=== PATIENT | male | born 1960 | race Hispanic/Latino ===

== ENCOUNTER → 2017-10-30 | Outpatient (CLI) | payer BC ==
[~2017-10-30] MED LIST: LISINOPRIL10 MG PO
--- NOTE | 2017-10-30 17:15 | Diagnostic Imaging Report ---
Left knee MRI without contrast. History: Knee pain. Lateral meniscus tear. Decreased range of motion. Comparison: None. Technique: Multiplanar multi-sequence MRI of the knee without contrast. Findings: Medial compartment: There is a complex medial meniscus tear involving the posterior horn and body segments best seen on sagittal series 3 image 31. The medial compartmental articular cartilage surfaces are thinned with regions of fraying and fissuring. There are peripheral marginal osteophytes. There is mild bone marrow edema. The medial collateral ligament complex is intact. Lateral compartment: There is a complex lateral meniscus tear involving the posterior horn and body segments. This is best seen on sagittal series 3 image 14. Lateral compartmental articular cartilage surfaces are within with regions of fraying and fissuring. There are peripheral marginal osteophytes. The lateral collateral ligament complex is intact. Intercondylar notch: The ACL and PCL are intact. Patellofemoral compartment: There is mild articular cartilage fraying and fissuring in the patellofemoral compartment. Extensor mechanism: The quadriceps and patellar tendons are normal. Other findings: There is a joint effusion and synovitis. There is no acute fracture, subluxation or avascular necrosis. IMPRESSION: Complex medial meniscus tear with associated degenerative arthrosis in the medial compartment of the knee. Complex lateral meniscus tear with associated degenerative arthrosis in the lateral compartment of the knee. Mild articular cartilage fraying and fissuring in the patellofemoral compartment. Joint effusion and synovitis. Signed by: Dr. Stalin Eden M.D. on 10/30/2017 5:11 PM
== END ==
LOC: MRI 15:48
PROVIDERS: ATTEND Specialist
DX: S83.282A Other tear of lateral meniscus, current injury, left knee, initial encounter (principal)

== ENCOUNTER → 2017-11-18 | Day surgery (SDC) | payer BC ==
[~2017-11-18] MED LIST changes: +ACETAMINOPHEN 1000 MG/100 ML IV ONE; +BUPIVACAINE HCL 0.5% INJ 30 ML VIAL INJ ONE; +CEFAZOLIN SOD 2 GM/D5W 50ML 50 ML IV ONE; +DEXAMETHASONE SOD PHOS INJ 4 MG/ML VIAL ONE; +FENTANYL CITRATE/PF 100MCG/2 ML INJ ONE; +KETOROLAC TROMETHAMINE 30 MG/ML VIAL ONE; +LIDOCAINE HCL 2% LOCAL INJ 5 ML SDV VIAL INJ ONE; +MIDAZOLAM HCL 2 MG/2 ML VIAL ONE; +ONDANSETRON HCL INJ 2 MG/ML VIAL ONE; +PROPOFOL IV EMULSION 10 MG/ML 20 ML VIAL ONE; +SEVOFLURANE INHAL SOLN 250 ML PEN BTL ONE
--- OUTSIDE RECORDS SUMMARY | 2017-11-18 06:11 | XMS REPORT ---
Author [facility] Address Unknown Phone Unavailable Care Team Providers Care Risk Analyst Name Role Phone LIZZ OCHOA Unavailable Unavailable Problems This patient has no known problems. Allergies, Adverse Reactions, Alerts This patient has no known allergies or adverse reactions. Medications This patient has no known medications. Results Test Description Test Time Test Comments Text Results Atomic Results Result Comments MRI KNEE LEFT WO [place] [address] Patient Name: JEROME HESTER MR #: [id number] : 1960 Age/Sex: 57/M Req #: [id number] Adm Physician: Ordered by: LIZZ OCHOA MD Report #: [id number] Location: MRI Room/Bed: Procedure: [id number] MRI/MRI KNEE LEFT WO Exam Date: 10/30/17 Exam Time: 1610 REPORT STATUS: Signed Left knee MRI without contrast. History : Knee pain. Lateral meniscus tear. Decreased range of motion. Comparison: None. Technique: Multiplanar multi-sequence MRI of the knee without contrast. Findings: Medial compartment: There is a complex medial meniscus tear involving the posterior horn and body segments best seen on sagittal series 3 image 31. The medial compartmental articular cartilage surfaces are thinned with regions of fraying and fissuring. There are peripheral marginal osteophytes. There is mild bone marrow edema. The medial collateral ligament complex is intact. Lateral compartment: There is a complex lateral meniscus tear involving the posterior horn and body segments. This is best seen on sagittal series 3 image 14. Lateral compartmental articular cartilage surfaces are within with regions of fraying and fissuring. There are peripheral marginal osteophytes. The lateral collateral ligament complex is intact. Intercondylar notch: The ACL and PCL are intact. Patellofemoral compartment: There is mild articular cartilage fraying and fissuring in the patellofemoral compartment. Extensor mechanism: The quadriceps and patellar tendons are normal. Other findings: There is a joint effusion and synovitis. There is no acute fracture, subluxation or avascular necrosis. IMPRESSION: Complex medial meniscus tear with associated degenerative arthrosis in the medial compartment of the knee. Complex lateral meniscus tear with associated degenerative arthrosis in the lateral compartment of the knee. Mild articular cartilage fraying and fissuring in the patellofemoral compartment. Joint effusion and synovitis. Signed by: Dr. Shari Eden M.D. on 10/30 5:11 PM Dictated By: SHARI EDEN MD, MD 171 Transcribed By: MELONIE on 10/30/171710 COPY TO: LIZZ OCHOA MD
--- NOTE | 2017-11-19 09:46 | Operative Report ---
DATE OF PROCEDURE: November 18, 2017 PREOPERATIVE DIAGNOSES 1. Left knee medial meniscus tear. 2. Left knee lateral meniscus tear. 3. Left knee degenerative joint disease of the knee. POSTOPERATIVE DIAGNOSES 1. Left knee medial meniscus tear. 2. Left knee lateral meniscus tear. 3. Left knee degenerative joint disease of the knee. 4. Left knee intra-articular loose body. OPERATIONS/PROCEDURES PERFORMED 1. The patient underwent a left knee exam under anesthesia. 2. Left knee arthroscopy. 3. Left knee partial medial meniscectomy. 4. Left knee partial lateral meniscectomy. 5. Left knee chondroplasty of the patella, trochlea, medial femoral condyle, medial tibial plateau, lateral femoral condyle, and lateral plateau, as well as removal of an intra-articular loose body from the lateral compartment. JIG FILLER: None. ANESTHESIA: General endotracheal intubation anesthesia. IV FLUIDS: Per anesthesia record. BRIEF DESCRIPTION OF THE PATIENT'S OPERATIVE PROCEDURE: Mr. Joseph was taken to the operating room and placed in the supine position on the operating table. Following induction of general anesthesia, as well as endotracheal intubation, the patient's left lower extremity was examined under anesthesia. He was found to have a mild effusion within the knee joint, but otherwise a ligamentously stable knee. The patient's lower extremity was prepped and draped in a standard surgical fashion. A 2-portal technique was used to provide this patient arthroscopic evaluation of the knee joint. Examination of the suprapatellar pouch, medial and lateral gutters found no evidence of loose bodies. Scope was advanced to the medial compartment. Examination of the medial compartment demonstrated a torn posterior horn of the medial meniscus. There was also chondromalacia of the articulating surfaces. A combination of biting forceps and motorized shaver was used to resect the torn portion of the meniscus. Chondroplasties of the medial femoral condyle and medial tibial plateau were performed at this time. Scope was then advanced into the intracondylar notch. The anterior cruciate ligament was identified and found to be intact. Scope was then advanced in the lateral compartment, and the patient was found to have a torn and macerated lateral meniscus. There was chondromalacia of the articulating surfaces. There was also evidence of an intra-articular loose body. A combination of biting forceps and motorized shaver were used to resect the torn portion of the meniscus. The intra-articular loose body was removed with a grasper. Chondroplasties of the lateral femoral condyle and lateral tibial plateau were performed at this time. The scope was then placed in the suprapatellar pouch, and chondroplasty of the patellar and trochlear were performed. The knee was deflated of its sterile normal saline. Each of the portal sites were closed using 4-0 nylon suture. Portal sites as well as the knee itself was injected with 0.5% Marcaine with epinephrine. Sterile dressings were applied. The patient was awaken and taken to the postanesthesia care unit in stable condition. Job#: [id number]
== END | disposition home or self-care (01) ==
LOC: OR 06:08
PROVIDERS: ATTEND Specialist
DX: S83.262A Peripheral tear of lateral meniscus, current injury, left knee, initial encounter (principal); S83.222A Peripheral tear of medial meniscus, current injury, left knee, initial encounter; M17.12 Unilateral primary osteoarthritis, left knee; M23.42 Loose body in knee, left knee; M22.42 Chondromalacia patellae, left knee; I10 Essential (primary) hypertension; E78.5 Hyperlipidemia, unspecified; X58.XXXA Exposure to other specified factors, initial encounter; Z01.810 Encounter for preprocedural cardiovascular examination
CPT/HCPCS: 29880; 93005; J1100; J1885; J2001; J2250; J2405

== ENCOUNTER 2017-12-16 16:16 | Outpatient (RCR) | payer BC ==
[~2017-12-16 16:16] MED LIST changes: -ACETAMINOPHEN 1000 MG/100 ML IV ONE; -BUPIVACAINE HCL 0.5% INJ 30 ML VIAL INJ ONE; -CEFAZOLIN SOD 2 GM/D5W 50ML 50 ML IV ONE; -DEXAMETHASONE SOD PHOS INJ 4 MG/ML VIAL ONE; -FENTANYL CITRATE/PF 100MCG/2 ML INJ ONE; -KETOROLAC TROMETHAMINE 30 MG/ML VIAL ONE; -LIDOCAINE HCL 2% LOCAL INJ 5 ML SDV VIAL INJ ONE; -MIDAZOLAM HCL 2 MG/2 ML VIAL ONE; -ONDANSETRON HCL INJ 2 MG/ML VIAL ONE; -PROPOFOL IV EMULSION 10 MG/ML 20 ML VIAL ONE; -SEVOFLURANE INHAL SOLN 250 ML PEN BTL ONE
== END 2018-01-02 ==
LOC: PT 16:16
PROVIDERS: ATTEND Specialist
DX: M25.562 Pain in left knee (principal); M62.81 Muscle weakness (generalized); R26.2 Difficulty in walking, not elsewhere classified